=== PATIENT | female | born 1945 | race Caucasian/White ===

== ENCOUNTER → 2016-08-01 | Outpatient (CLI) | payer OTHER ==
[~2016-08-01] VITALS: Ht 149.9 cm; Wt 91.4 kg
[~2016-08-01] MED LIST: CALCIUM 500 +1 EAC2 PO; CALCIUM 500 MG1 EACH PO; FENOFIBRATE160 M1 PO; GABAPENTIN300 MG PO; HYDROCHLOROTHIA25 MG PO; HYZAAR 50-121 TABLET PO; LISINOPRIL40 MG PO; LOPRESSOR50 MG PO; METFORMIN HCL500 MG PO; PROTONIX40 MG PO; VITAMIN D35000 UNIT PO
[2016-08-01 10:47] VITALS: BP 144/79
== END | disposition home or self-care (01) ==
LOC: IVINF 10:40
DX: M81.0 Age-related osteoporosis without current pathological fracture (principal)
CPT/HCPCS: J3489

== ENCOUNTER 2017-05-11 17:11 | Emergency (ER) | payer OTHER ==
[~2017-05-11] VITALS: Ht 149.9 cm; Wt 86.3 kg
[2017-05-11 18:56] LABS: HEMATOCRIT 42.8 % (36.0-46.0); HEMOGLOBIN 15.2 G/DL (11.9-15.5); MCH 33.4 PG (29.0-34.0); MCHC 35.5 G/DL (30.0-36.0); MCV 94.1 FL (83-99); PLATELET COUNT 181 K/uL (156-360); RBC DIS.WIDTH-CV 11.6 % (11.8-14.6); RED BLOOD COUNT 4.55 M/uL (3.80-5.20); WHITE BLOOD COUNT 5.9 K/uL (4.1-10.2)
[2017-05-11 19:06] LABS: ALBUMIN 3.9 g/dL (3.2-4.8); CHLORIDE 104 mEq/L (99-109); POTASSIUM 3.9 mEq/L (3.7-5.4); SODIUM 137 mEq/L (136-147)
[2017-05-11 19:09] LABS: GLUCOSE 207 mg/dL (70-99); TOTAL PROTEIN 7.3 g/dL (6.4-8.3)
[2017-05-11 19:11] LABS: TOTAL BILIRUBIN 0.8 mg/dL (0.0-1.0)
[2017-05-11 19:12] LABS: ALKALINE PHOSPHATASE 87 IU/L (3-129); CREATININE 0.7 mg/dL (0.6-1.3); GFR ESTIMATE (CALCULATED) > 59 mL/min/
[2017-05-11 19:13] LABS: UREA NITROGEN (BUN) 11 mg/dL (9-23)
[2017-05-11 19:13] LABS: ALBUMIN 3.9 g/dL (3.2-4.8); CHLORIDE 103 mEq/L (99-109); POTASSIUM 4.1 mEq/L (3.7-5.4); SODIUM 137 mEq/L (136-147)
[2017-05-11 19:14] LABS: AST (GOT) 46 IU/L (2-34)
[2017-05-11 19:15] LABS: ALT (GPT) 33 IU/L (3-49)
[2017-05-11 19:16] LABS: GLUCOSE 204 mg/dL (70-99); TOTAL PROTEIN 7.5 g/dL (6.4-8.3)
[2017-05-11 19:18] LABS: TOTAL BILIRUBIN 0.8 mg/dL (0.0-1.0)
[2017-05-11 19:19] LABS: ALKALINE PHOSPHATASE 88 IU/L (3-129); CREATININE 0.7 mg/dL (0.6-1.3); GFR ESTIMATE (CALCULATED) > 59 mL/min/
[2017-05-11 19:21] LABS: AST (GOT) 48 IU/L (2-34); DIRECT BILIRUBIN 0.3 mg/dL (0.0-0.3); UREA NITROGEN (BUN) 10 mg/dL (9-23)
[2017-05-11 19:22] LABS: ALT (GPT) 33 IU/L (3-49)
[2017-05-11 19:23] LABS: LIPASE 15 U/L (1.0-51.0)
[2017-05-11 20:32] LABS: APPEARANCE CLEAR ((CLEAR)); BILIRUBIN NEGATIVE; BLOOD NEGATIVE; COLOR STRAW ((YELLOW)); GLUCOSE (STRIP) NEGATIVE; KETONES NEGATIVE; LEUKOCYTES NEGATIVE; NITRITE NEGATIVE; PROTEIN (STRIP) NEGATIVE; SPECIFIC GRAVITY 1.004 (1.000-1.030); UCUL ADDED? NO; UROBILINOGEN 0.2 MG/DL (0.2-1.0)
[2017-05-11] MEDS ORDERED: BENTYL20 MG PO (21:08)
[2017-05-11] MEDS ORDERED: ZOFRAN ODT8 MG PO (21:08)
[2017-05-11 22:09] VITALS: BP 168/102
== END 2017-05-11 22:10 | disposition home or self-care (01) ==
LOC: EME 17:11
PROVIDERS: Physician Assistant
DX: R10.2 Pelvic and perineal pain (principal); I71.4 Abdominal aortic aneurysm, without rupture; R73.9 Hyperglycemia, unspecified; K43.9 Ventral hernia without obstruction or gangrene; I10 Essential (primary) hypertension; E78.5 Hyperlipidemia, unspecified; Z79.84 Long term (current) use of oral hypoglycemic drugs; Z90.49 Acquired absence of other specified parts of digestive tract; Z88.2 Allergy status to sulfonamides; Z88.0 Allergy status to penicillin
CPT/HCPCS: 74177; 80048 91; 80053; 80076; 81003; 83605; 83690; 85027; 87086; 99281; 99284; J1885; J2405; J7120

== ENCOUNTER → 2017-05-15 | Outpatient (CLI) | payer OTHER ==
[~2017-05-15] MED LIST changes: +BENTYL20 MG PO; +ZOFRAN ODT8 MG PO
== END | disposition home or self-care (01) ==
LOC: RAD 08:53
DX: M16.0 Bilateral primary osteoarthritis of hip (principal); M47.896 Other spondylosis, lumbar region; M47.898 Other spondylosis, sacral and sacrococcygeal region
CPT/HCPCS: 73502